=== PATIENT | male | born 1995 | race American Indian/Alaskan Native ===

== ENCOUNTER 2017-12-23 02:31 | Emergency (ER) | payer OTHER ==
[2017-12-23] MEDS ORDERED: MOTRIN PO ONE (08:56)
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
[2017-12-23] MEDS ORDERED: MOTRIN ONE (11:08)
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
[2017-12-23 12:20] VITALS: BP 123/81
== END 2017-12-23 12:20 | disposition home or self-care (01) ==
LOC: ED 02:31
DX: S52.501A Unspecified fracture of the lower end of right radius, initial encounter for closed fracture (principal); S13.4XXA Sprain of ligaments of cervical spine, initial encounter; R51 Headache; V49.49XA Driver injured in collision with other motor vehicles in traffic accident, initial encounter; Z87.891 Personal history of nicotine dependence; Y93.89 Activity, other specified; Y92.89 Other specified places as the place of occurrence of the external cause; Y99.8 Other external cause status
CPT/HCPCS: 70450; 72125; 99284